=== PATIENT | female | born 1995 | race Caucasian/White ===

== ENCOUNTER 2017-12-20 15:01 | Inpatient (IN) | payer OTHER ==
[2017-12-20] MEDS: LACTATED RINGER'S 1000 ML IV (15:37)
[2017-12-20] MEDS ORDERED: OXYTOCIN 30 UNITS IN 0.9% NaCl 500ML IV BAG (J2590) As Ordered (16:03)
[2017-12-20 16:04] LABS: HEMATOCRIT 29.5 % (36.0-47.0); HEMOGLOBIN 9.8 g/dl (12.0-16.0); MEAN CORPUSCULAR HEMOGLOBIN 27.4 pg (27.0-33.0); MEAN CORPUSCULAR HGB CONC 33.2 g/dl (32.0-36.5); MEAN CORPUSCULAR VOLUME 82.4 fl (80.0-96.0); PLATELET COUNT, AUTOMATED 188 10^3/uL (150-450); RED BLOOD COUNT 3.58 10^6/uL (4.00-5.40); RED CELL DISTRIBUTION WIDTH 14.1 % (11.5-14.5); WHITE BLOOD COUNT 12.7 10^3/uL (4.0-10.0)
[2017-12-20] MEDS ORDERED: FENTANYL 2MCG/ML ROPIVACAINE 0.2% IN 0.9% NACL 200ML IVBAG As Ordered (16:12)
[2017-12-20] MEDS ORDERED: REFRIGERATOR IV KEYS XX (17:30)
[2017-12-20] MEDS ORDERED: LACTATED RINGER'S 1000 ML IV (17:30)
[2017-12-20] MEDS ORDERED: EPIDURAL COMMENT XX (17:30)
[2017-12-20] MEDS ORDERED: NALOXONE INJ 0.4 MG/1 ML VIAL (J2310) IV (17:30)
[2017-12-20] MEDS ORDERED: EPIDURAL/PCA KEYS XX (17:30)
[2017-12-20] MEDS ORDERED: diphenhydrAMINE INJ 50MG/ML VIAL (J1200) IV (17:30)
[2017-12-20] MEDS ORDERED: ONDANSETRON 4MG/2ML VIAL (J2405) IV (17:30)
[2017-12-20] MEDS ORDERED: FENTANYL/ROPIVACAINE/NACL BAG 200 ML EPIDURAL (17:30)
[2017-12-20] MEDS ORDERED: ePHEDrine INJ 50 MG/ML VIAL IV (17:30)
[2017-12-20] MEDS: LR 1,000 ML IV (18:14)
[2017-12-20] MEDS ORDERED: LR 1,000 ML IV (19:54)
[2017-12-20] MEDS: OXYTOCIN DRIP 30 UNITS in APPROPRIATE DILUENT 1 EA IV ×2 (20:06→21:13)
[2017-12-20] MEDS ORDERED: METOCLOPRAMIDE INJ 10MG/2ML VIAL (J2765) IV (21:15)
[2017-12-20] MEDS ORDERED: DIBUCAINE 1% OINTMENT 30GM TOP (21:15)
[2017-12-20] MEDS: IBUPROFEN 800 MG TAB PO (23:33)
[2017-12-21] MEDS: RHOGAM 300 MCG (1500 IU) INJ (J2790) IM (07:32)
[2017-12-21] MEDS: MEASLES,MUMPS,RUBELLA VACCINE INJ (MMR-II) (90707) SC (07:32)
[2017-12-21] MEDS: PRENATAL VITAMINS CHEWABLE TABLET PO (08:23)
[2017-12-21] MEDS: IBUPROFEN 800 MG TAB PO ×2 (08:23→15:33)
[2017-12-21] MEDS: DOCUSATE SODIUM 100 MG CAP PO ×2 (08:23→20:25)
[2017-12-21] MEDS: ACETAMINOPHEN TAB 650MG DOSE (2X325MG) PO ×3 (08:44→20:25)
[2017-12-22] MEDS: IBUPROFEN 800 MG TAB PO ×2 (00:28→09:52)
[2017-12-22] MEDS: DOCUSATE SODIUM 100 MG CAP PO (08:01)
[2017-12-22] MEDS: PRENATAL VITAMINS CHEWABLE TABLET PO (08:01)
[2017-12-22] MEDS: ACETAMINOPHEN TAB 650MG DOSE (2X325MG) PO (09:52)
== END 2017-12-22 13:50 | disposition home or self-care (01) | DRG 775 ==
LOC: M LDI 15:01 → M OBS 22:42
PROVIDERS: Obstetrics & Gynecology
PROC: 10E0XZZ Delivery of Products of Conception, External Approach (ICD-10-PCS; principal; 2017-12-20)
PROC: 10907ZC Drainage of Amniotic Fluid, Therapeutic from Products of Conception, Via Natural or Artificial Opening (ICD-10-PCS; 2017-12-20)
DX: O80 Encounter for full-term uncomplicated delivery (principal); Z37.0 Single live birth; Z3A.39 39 weeks gestation of pregnancy

== ENCOUNTER → 2019-01-13 | Outpatient (REF) | payer OTHER ==
[~2019-01-13] MED LIST: COLA100C5 PO; DIBU10OI TOP; DIBU1OIN TOP; IBUP-1022 PO; IBUP-1114 PO; MAPA500T2 PO; PHEN2SUP PR; PRENTAB55 PO; REGL10TA6 PO; STUACAP PO
== END ==
LOC: M SFHCLERA 10:56
PROVIDERS: ATTEND Nurse Practitioner Family
DX: R53.81 Other malaise (principal)

== ENCOUNTER 2019-01-21 12:18 | Emergency (ER) | payer OTHER ==
[~2019-01-21] VITALS: Ht 172.7 cm; Wt 65.9 kg
[2019-01-21] MEDS ORDERED: FLUTISP (12:24)
[2019-01-21] MEDS ORDERED: NS 1,000 ML IV ONE (14:00)
[2019-01-21 14:28] LABS: HEMATOCRIT 41.8 % (36.0-47.0); HEMOGLOBIN 14.3 g/dl (12.0-15.5); MEAN CORPUSCULAR HEMOGLOBIN 30.2 pg (27.0-33.0); MEAN CORPUSCULAR HGB CONC 34.2 g/dl (32.0-36.5); MEAN CORPUSCULAR VOLUME 88.2 fl (80.0-96.0); PLATELET COUNT, AUTOMATED 353 10^3/uL (150-450); RED BLOOD COUNT 4.74 10^6/uL (4.00-5.40); WHITE BLOOD COUNT 16.7 10^3/uL (4.0-10.0)
--- NOTE | 2019-01-21 14:37 | REP ---
CT Head without contrast HISTORY: Right facial pain COMPARISON: None There is no intraparenchymal hemorrhage, acute infarct, mass or midline shift. The ventricular system is normal in appearance. There is no extra cerebral collection. There is no fracture. Mucosal thickening is present in the sinuses. IMPRESSION: There is no intracranial lesion. Electronically Signed by Bryan Rosas MD 01/21/2019 02:29 P
[2019-01-21 14:42] LABS: INR 0.98; PROTHROMBIN TIME 13.1 SECONDS (12.1-14.4)
[2019-01-21 14:43] LABS: PARTIAL THROMBOPLASTIN TIME 32.4 SECONDS (25.4-37.6)
[2019-01-21] MEDS ORDERED: KETOROLAC 30 MG/ML VIAL (J1885) IV ONE (14:45)
--- NOTE | 2019-01-21 14:46 | REP ---
MAXILLOFACIAL CT WITHOUT CONTRAST: HISTORY: Right side pain. Mucosal thickening is present in the sinuses. There is almost complete opacification of the ethmoid sinuses. There is complete opacification of the right sphenoid sinus. Moderate mucosal thickening is present in the left maxillary sinus. Minimal mucosal thickening is present in the right maxillary and right frontal sinuses. The left frontal sinus is clear. Air fluid levels are present in the maxillary sinuses. Mucosal thickening involves the ostiomeatal units. The middle and inferior nasal turbinates are partially paradoxical. There is minimal deviation of the nasal septum to the right inferiorly and mild deviation to the left superiorly. The cribriform plate, medial gonsales of the orbits, and optic canals are intact. The carotid canals form a segment at the posterolateral gonsales of the sphenoid sinus. IMPRESSION: Sinus mucosal thickening as described above. There are air fluid levels in the maxillary sinuses consistent with acute sinusitis. Electronically Signed by Bryan Rosas MD 01/21/2019 02:49 P
[2019-01-21 14:55] LABS: BLOOD UREA NITROGEN 12 MG/DL (7-18); C REACTIVE PROTEIN QUANTITATIV 2.09 MG/DL (0.00-0.30); CALCIUM LEVEL 9.3 MG/DL (8.5-10.1); CARBON DIOXIDE LEVEL 30 MEQ/L (21-32); CHLORIDE LEVEL 103 MEQ/L (98-107); CREATININE FOR GFR 0.71 MG/DL (0.55-1.30); GLOMERULAR FILTRATION RATE > 60.0 (>60); GLUCOSE, FASTING 89 MG/DL (70-100); POTASSIUM SERUM 4.3 MEQ/L (3.5-5.1); SODIUM LEVEL 138 MEQ/L (136-145)
[2019-01-21 15:08] LABS: ERYTHROCYTE SEDIMENTATION RATE 13 mm/hr (0-20)
[2019-01-21] MEDS ORDERED: PRED20TA PO (15:22)
[2019-01-21] MEDS ORDERED: AUGM875T28 PO (15:22)
[2019-01-21 15:30] VITALS: BP 116/64
== END 2019-01-21 15:43 | disposition home or self-care (01) ==
LOC: M ED 12:18
DX: J32.9 Chronic sinusitis, unspecified (principal); Z88.1 Allergy status to other antibiotic agents; Z88.2 Allergy status to sulfonamides; Z88.8 Allergy status to other drugs, medicaments and biological substances
CPT/HCPCS: 36415; 70450; 70486; 80048; 85027; 85610; 85652; 85730; 86140; 96374; 99284; J1885